=== PATIENT | male | born 1995 | race Asian ===

== ENCOUNTER 2017-05-05 21:50 | Emergency (ER) | payer OTHER | END 2017-05-06 02:02 | disposition home or self-care (01) | LOC: FTE 21:50 | DX: S30.813A Abrasion of scrotum and testes, initial encounter (principal); X58.XXXA Exposure to other specified factors, initial encounter; Y92.9 Unspecified place or not applicable | CPT/HCPCS: 76870; 87591; 99284-25 ==

== ENCOUNTER 2017-07-07 03:22 | Emergency (ER) | payer OTHER | END 2017-07-07 05:22 | disposition home or self-care (01) | LOC: FTE 03:22 | DX: T16.1XXA Foreign body in right ear, initial encounter (principal); X58.XXXA Exposure to other specified factors, initial encounter; Y92.9 Unspecified place or not applicable | CPT/HCPCS: 99283; Z7502 ==

== ENCOUNTER 2018-09-03 03:49 | Emergency (ER) | payer OTHER ==
[2018-09-03] MEDS: KETOROLAC 30 MG INJ IM (04:26)
[2018-09-03] MEDS: CYCLOBENZAPRINE 10 MG TAB PO (04:27)
== END 2018-09-03 05:08 | disposition home or self-care (01) ==
LOC: FTE 03:49
DX: M94.0 Chondrocostal junction syndrome [Tietze] (principal); F43.9 Reaction to severe stress, unspecified; F41.9 Anxiety disorder, unspecified
CPT/HCPCS: 93005; 96372; 99284-25